=== PATIENT | male | born 1960 | race Caucasian/White ===

== ENCOUNTER 2020-02-02 08:55 | Day surgery (SDC) | payer OTHER ==
[~2020-02-02] VITALS: Ht 177.8 cm; Wt 80.0 kg
[2020-02-02] MEDS ORDERED: OXYCODON-ACETA1 EAC2 PO (12:24)
[2020-02-02] MEDS ORDERED: ACETAMINOPHEN500 MG PO (12:24)
[2020-02-02] MEDS ORDERED: IBUPROFEN600 MG PO (12:24)
--- NOTE | 2020-02-02 12:32 | NUR ---
02/02/20 1232 Justin Fuller REORIENTED TO TIME AND SITUATION ON ENTRY TO PACU. DENIES NAUSEA OR PAIN. MD AT BEDSIDE REVIEWING PROCEDURE WITH PT.
--- NOTE | 2020-02-02 12:54 | NUR ---
BEDSIDE REPORT FROM RECOVERY NURSE TYREL PITTMAN. PATIENT AWAKE, RATES PAIN 2/10 ON PAIN SCALE. DRESSING INTACT. SISTER AT BEDSIDE, NO OTHER NEEDS AT THIS TIME. CALL LIGHT WITHIN REACH.
--- NOTE | 2020-02-03 12:15 | OR ---
[facility] [address] [place], [place] [address] Signed DATE OF OPERATION: 02/02/2020 SURGEON: Rosario Jean MD PREOPERATIVE DIAGNOSES: 1. Multiple symptomatic abdominal and torso lipomata. 2. Probable left inguinal lipoma of the cord. POSTOPERATIVE DIAGNOSES: 1. Multiple subcutaneous lipomatous masses, abdominal wall, left and right lateral flank. 2. Inguinal lesion more likely inguinal hernia than lipoma. 3. Deep subfascial large lipoma of left flank. PROCEDURES: 1. Excision of multiple lipomata of abdominal wall and lumbar areas (9). 2. Excision of left flank deep subfascial lipomatosis mass. ANESTHESIA: General LMA; Local 25 mL of 0.25% Marcaine with epinephrine. COMMERCIAL MAINTENANCE TECHNICIAN: Rosario Mccann CRNA. INDICATION: This 59-year-old white man is well known to me from the past. He is now a patient of Dr. Gaviota Westbrook. The patient is bothered by multiple lipomata of his extremities and abdomen and torso for a number of years. He has undergone excision of lipoma in the past. He is here to undergo excision of symptomatic lipomas of his abdominal wall and torso. Plans were made for excision of lipomas of the extremities; however, insurance review did not allow for such excision concurrently unfortunately. Additionally, he appears to have a mobile mass of the left inguinal area suggestive of cord lipoma and exploration for that is undertaken as well. He understands the risks of bleeding, infection, need for additional treatment and other unforeseen complications and wished to proceed. FINDINGS: Most of the lesions were indeed lipomata. The inguinal lesion was more likely an inguinal hernia, which we will address in the future. Most of the lipomas were subcutaneous, but relatively deep, but not as deep as one on the left lateral flank area, which was adherent to the muscle of the left flank. This was a deep subfascial Electronically Signed By: ROSARIO JEAN MD 02/03/20 1215 PATIENT NAME: EMILE BOOTHE OPERATIVE REPORT DATE OF : 60 REPORT #: [id number] PHYSICIAN: ROSARIO JEAN MD PCP: GAVIOTA WESTBROOK MD REPORT IS CONFIDENTIAL AND NOT TO BE RELEASED WITHOUT AUTHORIZATION [facility] [address] [place] [id number] Signed lipoma, it was excised as well. In total, 10 lesions were excised. DESCRIPTION OF PROCEDURE: The patient was brought to the operating room, given a general LMA type anesthetic. Preoperative antibiotic Ancef was given. Sequential compression device stockings were used. The onset of the operation was with him in supine position, the abdominal area was clipped and prepared with chlorhexidine solution and draped sterilely. Beginning in the central portion, the subxiphoid subcostal margin area, a transverse incision was made over the palpable subcutaneous mass. Dissection carried through the dermis sharply and with blunt and hemostat dissection and lipomatous mass was excised. Seven additional lesions were excised in a similar way including 3 in the subcostal area on the left, 3 in the left lower abdomen and 1 in the right perirectal space. A left inguinal lesion was thought likely to be a lipomatous mass of the cord; however, dissection revealed only a minimal lipoma, but more likely an inguinal hernia. I did consider repairing the hernia at the time, but without insurance authorization and uncertain as to the patient's intentions and with known complications somewhat lipomata excision that hernia was not repaired at this time. All wounds were infiltrated with local anesthetic 0.25% Marcaine with epinephrine and closed with interrupted 2-0 Vicryl and Steri-Strips and ultimately small OpSite. The patient was then rotated to the left lateral position with arm, shoulder roll for protection of the axilla and appropriate positioning and pressure point protection of extremities. The right lateral flank area was prepared with a chlorhexidine solution and draped sterilely and two separate incisions in that area were made and lipomatous lesions excised as well. A similar closure technique was used and the patient was then rotated to the right side down again with a careful pressure padding of pressure points. A single dominant and relatively large soft tissue mass of the left flank was similarly excised and dissection carried down to the muscular wall itself and clearly a subfascial lipoma was noted. Electrocautery was used for hemostasis. The wound was similarly closed and Steri-Strips applied as were OpSite dressings. The patient was ultimately returned to the supine position, extubated, and taken to recovery room in good condition. BLOOD LOSS: Minimal. Rosario Jean MD Electronically Signed By: ROSARIO JEAN MD 02/03/20 1215 PATIENT NAME: EMILE BOOTHE OPERATIVE REPORT DATE OF : 60 REPORT #: [id number] PHYSICIAN: ROSARIO JEAN MD PCP: GAVIOTA WESTBROOK MD REPORT IS CONFIDENTIAL AND NOT TO BE RELEASED WITHOUT AUTHORIZATION [place] [address] Signed /MODL /[id number] cc: Gaviota Westbrook MD Copies: ~ Electronically Signed By: ROSARIO JEAN MD 02/03/20 1215 PATIENT NAME: EMILE BOOTHE OPERATIVE REPORT DATE OF : 60 REPORT #: [id number] PHYSICIAN: ROSARIO JEAN MD PCP: GAVIOTA WESTBROOK MD REPORT IS CONFIDENTIAL AND NOT TO BE RELEASED WITHOUT AUTHORIZATION
--- NOTE | 2020-02-06 11:19 | PATH ---
[facility] [address] [facility] [place], [place] [address] Signed SPECIMEN(S): A LIPOMA 1 SPECIMEN(S): B LIPOMA 2 SPECIMEN(S): C LIPOMA 3 SPECIMEN(S): D LIPOMA 4 SPECIMEN(S): E LIPOMA 5 SPECIMEN(S): F LIPOMA 6 SPECIMEN(S): G LIPOMA 7 SPECIMEN(S): H LIPOMA 8 SPECIMEN(S): I LIPOMA 9 SPECIMEN(S): J LIPOMA 10 SPECIMEN SOURCE: A. LIPOMA 1 B. LIPOMA 2 C. LIPOMA 3 D. LIPOMA 4 E. LIPOMA 5 F. LIPOMA 6 G. LIPOMA 7 H. LIPOMA 8 I. LIPOMA 9 J. LIPOMA 10 CLINICAL HISTORY: Lipomas. J #10 Left flank lipoma subfascial. Excision of multiple soft tissue masses. FINAL PATHOLOGIC DIAGNOSIS: A. "Lipoma #1", superior left upper quadrant abdomen, excision: - Angiolipoma. B. "Lipoma #2", inferior left upper quadrant abdomen, excision: - Angiolipoma. C. "Lipoma #3", inferior left upper quadrant abdomen, excision: - Angiolipoma. D. "Lipoma #4", superior left lower quadrant abdomen, excision: - Fragments of angiolipoma(s). E. "Lipoma #5", superior lateral left lower quadrant abdomen, excision: - Angiolipoma. F. "Lipoma #6", middle left lower quadrant abdomen, excision: - Angiolipoma. G. "Lipoma #7", medial right lower quadrant abdomen, excision: PATIENT NAME: EMILE BOOTHE PATHOLOGY DATE OF : 60 REPORT #: [id number] PHYSICIAN: KERON TENA PCP: CELSA BA MD REPORT IS CONFIDENTIAL AND NOT TO BE RELEASED WITHOUT AUTHORIZATION [facility] [address] [place], [place] [address] Signed - Angiolipoma. H. "Lipoma #8", right flank, excision: - Angiolipoma. I. "Lipoma #9", right anterior flank, excision: - Lobules of mature fibroadipose tissue, consistent with lipoma. J. "Lipoma #10", left flank subfascial , excision: - Angiolipoma. NAL:cml:C2NR MICROSCOPIC EXAMINATION: Histologic sections of all submitted blocks are examined by light microscopy. These findings, together with the gross examination, support the pathologic diagnosis. GROSS DESCRIPTION: Ten specimens are received in ten containers, labeled "DB." A. The specimen, labeled "DB, A," and designated on the requisition "lipoma #1," is received in formalin and consists of a circumscribed fatty tissue nodule, measuring 3.0 x 1.7 x 1.0 cm. The specimen is serially sectioned revealing a yellow homogenous cut surface. Dialysis Nurse sections are submitted in cassette (A1). B. The specimen, labeled "DB, B," and designated on the requisition "lipoma #2," is received in formalin and consists of a circumscribed fatty tissue nodule, measuring 4.5 x 3.6 x 1.4 cm. The specimen is serially sectioned revealing a yellow homogenous cut surface. Dialysis Nurse sections are submitted in cassette (B1). C. The specimen, labeled "DB, C," and designated on the requisition "lipoma #3," is received in formalin and consists of a circumscribed fatty tissue nodule, measuring 2.6 x 1.6 x 0.9 cm. The specimen is serially sectioned revealing a yellow homogenous cut surface. Dialysis Nurse sections are submitted in cassette (C1). D. The specimen, labeled "DB, D," and designated on the requisition "lipoma #4," is received in formalin and consists of two circumscribed fatty tissue nodules, ranging from 1.7-2.5 cm in greatest dimension. The specimens are serially sectioned revealing a yellow homogenous cut surface. Dialysis Nurse sections from each are submitted in cassette (D1). E. The specimen, labeled "DB, E," and designated on the requisition "lipoma #5," is received in formalin and consists of a circumscribed fatty tissue nodule, measuring 3.2 x 2.2 x 1.5 cm. The specimen is serially sectioned revealing a yellow homogenous cut surface. Dialysis Nurse sections are submitted in cassette (E1). PATIENT NAME: EMILE BOOTHE PATHOLOGY DATE OF : 60 REPORT #: [id number] PHYSICIAN: KERON PATHOLOGY PCP: CELSA BA MD REPORT IS CONFIDENTIAL AND NOT TO BE RELEASED WITHOUT AUTHORIZATION [facility] [address] [place], [place] [address] Signed F. The specimen, labeled "DB, F," and designated on the requisition "lipoma #6," is received in formalin and consists of a circumscribed fatty tissue nodule, measuring 1.7 x 1.5 x 1.5 cm. The specimen is serially sectioned and entirely submitted in cassette (F1). G. The specimen, labeled "DB, G," and designated on the requisition "lipoma #7," is received in formalin and consists of a circumscribed fatty tissue nodule, measuring 4.0 x 3.5 x 2.0 cm. The specimen is serially sectioned revealing a yellow homogenous cut surface. Dialysis Nurse sections are submitted in cassette (G1). H. The specimen, labeled "DB, H," and designated on the requisition "lipoma #8," is received in formalin and consists of a circumscribed fatty tissue nodule measuring 4.4 x 3.2 x 2.1 cm. The specimen is serially sectioned revealing a yellow cut surface with minimal fibrous tissue. Dialysis Nurse sections are submitted in cassette (H1). I. The specimen, labeled "DB, I," and designated on the requisition "lipoma #9," is received in formalin and consists of a circumscribed fatty tissue nodule, measuring 2.3 x 1.8 x 1.3 cm. The specimen is serially sectioned revealing fatty and fibrous cut surfaces. Dialysis Nurse sections are submitted in cassette (I1). J. The specimen, labeled "DB, J," and designated on the requisition "lipoma #10," is received in formalin and consists of a circumscribed fatty tissue nodule, measuring 5.0 x 3.2 x 2.5 cm. The specimen is serially sectioned revealing yellow homogenous cut surface. Dialysis Nurse sections are submitted in cassette (J1). AT (under the direct supervision of a pathologist) The Gross Description was prepared using a voice recognition system. The report was reviewed for accuracy; however, sound-alike word errors, addition and/or deletions may occur. If there is any question about this report, please contact Client Services. PERFORMING LABORATORY: The technical component was performed by [facility] [address] (Dye Tub Operator: Susan Dudley MD; CLIA# [id number]). [facility] [address] [place] [id number] (CLIA# [id number]). Diagnostician: Alejandrina Maguire MD Pathologist Electronically Signed 02/06/2020 PATIENT NAME: EMILE BOOTHE PATHOLOGY DATE OF : 60 REPORT #: [id number] PHYSICIAN: KERON PATHOLOGY PCP: CELSA BA MD REPORT IS CONFIDENTIAL AND NOT TO BE RELEASED WITHOUT AUTHORIZATION [address] [address] Signed Copies: ~ PATIENT NAME: EMILE BOOTHE PATHOLOGY DATE OF : 60 REPORT #: [id number] PHYSICIAN: KERON PATHOLOGY PCP: CELSA BA MD REPORT IS CONFIDENTIAL AND NOT TO BE RELEASED WITHOUT AUTHORIZATION
== END 2020-02-02 14:00 | disposition home or self-care (01) ==
LOC: DS 08:55
PROVIDERS: ATTEND Surgery
PROC: 0JB70ZZ Excision of Back Subcutaneous Tissue and Fascia, Open Approach (ICD-10-PCS; 2020-02-02)
PROC: 0JB80ZZ Excision of Abdomen Subcutaneous Tissue and Fascia, Open Approach (ICD-10-PCS; principal; 2020-02-02 09:30)
DX: D17.1 Benign lipomatous neoplasm of skin and subcutaneous tissue of trunk (principal)
CPT/HCPCS: 00400; J0330; J0690; J1100; J1885; J2250; J2405; J2704; J2765; J3010; J7121

== ENCOUNTER 2021-10-08 07:57 | Day surgery (SDC) | payer OTHER ==
[~2021-10-08] VITALS: Ht 177.8 cm; Wt 84.1 kg
[~2021-10-08 07:57] MED LIST: ACETAMINOPHEN500 MG PO; IBUPROFEN600 MG PO; MULTI-VITAMIN1 EACH PO; OXYCODON-ACETA1 EAC2 PO
--- NOTE | 2021-10-08 13:01 | NUR ---
10/08/21 1301 Nury Matta 1246 PATIENT INTO PACU. REPORT RECIEVED FROM SAMY GATES. PATIENT IS ON 6 LITERS VIA MASK. OPA FOR AIRWAY SUPPORT IN PLACE. BREATHING EQUAL AND UNLABORED. OXYGEN SATURATIONS ABOVE 95%. PATIENT IS NON AROUSABLE. SR ON TELE. IVF INFUSING. 1255 PATIENT IS NONAROUSABLE. PATIENT WAS MOVING ARMS BUT NOT RESPONDING. OXYGEN AT 6 LITERS VIA MASK. BREATHING EQUAL AND UNLABORED. 1257 PATIENT AROUSING. OPA REMOVED. OXYGEN AT 6 LITERS VIA MASK. BREATHING AND UNLABORED. PATIENT DENIES ANY PAIN OR NAUSEA. 1300 PATIENT TALKING TO THIS RN. OXYGEN TITRATED DOWN TO ROOM AIR. OXYGEN SATURATIONS ARE ABOVE 95%. BREATHING EQUAL AND UNLABORED. PATIENT DENIES ANY PAIN OR NAUSEA. PATIENT ENCOURAGED TO DEEP BREATH.
[2021-10-08] MEDS ORDERED: OXYCODON-ACETA1 EAC2 PO (13:10)
[2021-10-08] MEDS ORDERED: IBUPROFEN600 MG PO (13:10)
[2021-10-08] MEDS ORDERED: ACETAMINOPHEN500 MG PO (13:10)
--- NOTE | 2021-10-08 13:34 | NUR ---
1325: PT RETURNS TO UNIT FROM PACU ON STRETCHER. AWAKE AND ORIENTED ON ARRIVAL. DENIES PAIN AND NAUSEA. VSS, RESP EVEN AND UNLABORED. UPPER BODY SURGICAL SITES WITH MOD AMOUNT OF RED DRAINAGE UNDER OPSITE. LOWER BODY SURGICAL SITES C/D/I. ICE WATER PROVIDED AND QUESTIONS ANSWERED. POC DISCUSSED AND PT AGREEABLE. NO NEEDS VOICED, CALL LIGHT WITHIN REACH
--- NOTE | 2021-10-08 14:34 | NUR ---
1425: PT AWAKE AND ALERT IN STRETCHER WATCHING TV. VSS, RESP EVEN AND UNLABORED. DENIES PAIN AND NAUSEA AT THIS TIME. NO CHANGE TO SURGICAL SITES FROM ARRIVAL. MADDIE PO INTAKE WELL. DENIES NEED TO VOID AT THIS TIME, TO TRY IN 30 MINUTES. COMFORTABLE WITHOUT NEEDS AT THIS TIME. CALL LIGHT WITHIN REACH
--- NOTE | 2021-10-08 15:05 | NUR ---
1500: PT CONTS TO DENY PAIN AND NAUSEA. DANGLES AT THE BEDSIDE, MADDIE WELL. AMBULATES TO BR WITH STANDBY FROM THIS RN. STEADY GAIT. SUCCESSFUL FIRST POSTOP VOID, 300MLS. BACK TO ROOM 6 AND DRESSES FOR DC INDEPENDENTLY. 1510: SL REMOVED WITH CATH TIP INTACT AND PRESSURE APPLIED TO SITE, WNL. DC INSTRUCTIONS PROVIDED AND DISCUSSED ORDERED. PT VOICES UNDERSTANDING AND DENIES QUESTIONS AND CONCERNS AT THIS TIME. WHEELED OFF OF UNIT IN BY THIS RN. TRANSFERS INTO VEHICLE INDEPENDENTLY AND APPROPRIATELY. NO PHYSICAL S/S OF DISTRESS AT THIS TIME
--- NOTE | 2021-10-11 08:25 | PATH ---
[facility] [address] [place], [place] [address] Signed SPECIMEN(S): A RIGHT LEG SPECIMEN(S): B RIGHT ABDOMINAL WALL SPECIMEN(S): C RIGHT UPPER ARM SPECIMEN(S): D LEFT LEG SPECIMEN(S): E LEFT CHEST SPECIMEN(S): F LEFT UPPER ARM SPECIMEN SOURCE: A. RIGHT LEG B. RIGHT ABDOMINAL WALL C. RIGHT UPPER ARM D. LEFT LEG E. LEFT CHEST F. LEFT UPPER ARM CLINICAL HISTORY: Multiple lipomas. FINAL PATHOLOGIC DIAGNOSIS: A. Right leg: - Lipoma. B. Right abdominal wall: - Lipoma. C. Right upper arm: - Angiolipoma. D. Left leg: - Lipoma. E. Left chest: - Lipoma. F. Left upper arm: - Angiolipoma. TWK:emh:C2NR MICROSCOPIC EXAMINATION: Histologic sections of all submitted blocks are examined by light microscopy. These findings, together with the gross examination, support the pathologic diagnosis. A. The specimen consists of benign adipose tissue consistent with a lipoma. Atypical features are not seen. B. The specimen consists of benign adipose tissue consistent with a lipoma. Atypical features are not seen. PATIENT NAME: EMILE BOOTHE PATHOLOGY DATE OF : 60 REPORT #: [id number] PHYSICIAN: KERON PATHOLOGY PCP: CELSA BA MD REPORT IS CONFIDENTIAL AND NOT TO BE RELEASED WITHOUT AUTHORIZATION [facility] [address] [facility] [place], [place] [address] Signed C. The lesion consists of a benign lipoma with a characteristic integrated pattern of vascular proliferation and adipose tissue. Atypical features are not seen, and there is no evidence of malignancy. D. The specimen consists of benign adipose tissue consistent with a lipoma. Atypical features are not seen. E. The specimen consists of benign adipose tissue consistent with a lipoma. Atypical features are not seen. F. The lesion consists of a benign lipoma with a characteristic integrated pattern of vascular proliferation and adipose tissue. Atypical features are not seen, and there is no evidence of malignancy. [facility] GROSS DESCRIPTION: Six specimens are received in six containers, labeled "DB." A. The specimen, labeled "DB, A," and designated on the requisition "right leg lipomas 9," is received in formalin and consists of multiple, fragmented, markedly ragged, yellow, partially thinly encapsulated fibrofatty tissue pieces from 0.4 up to 4.3 cm in greatest dimension and 12.3 grams. The specimen is inked blue and cross-sectioned to reveal yellow, homogenous, grossly unremarkable tissue. Salesperson [employer] sections are submitted in one cassette (A1). B. The specimen, labeled "DB, B," and designated on the requisition "right abdominal wall 2 lipomas," is received in formalin and consists of two ragged, unoriented, undesignated, partially thinly encapsulated, yellow, rubbery tissue pieces. The first is 3.2 x 1.2 x 0.7 cm, 1.2 grams, inked blue, and cross-sectioned to reveal yellow, homogenous, grossly remarkable tissue. The second is 2.2 x 2.0 x 1.1 cm, 2.5 grams, inked orange, and cross-sectioned to reveal yellow, homogenous tissue with rare focal areas of og-white fibrous septae. A discrete mass/lesion is not grossly identified. Salesperson [employer] sections, including the orange ink piece entirely, are submitted in 3 cassettes (B1-B3). C. The specimen, labeled "DB, C," and designated on the requisition "right upper arm lipoma," is received in formalin and consists of 7.9 grams, five, thinly encapsulated, slightly ragged, yellow, lobulated, rubbery, irregularly-shaped tissue pieces from 1.5 up to 3.7 cm in greatest dimension. The smallest is inked red, the second smallest is inked yellow, the third smallest is inked orange, PATIENT NAME: EMILE BOOTHE PATHOLOGY DATE OF : 60 REPORT #: [id number] PHYSICIAN: KERON TENA PCP: CELSA BA MD REPORT IS CONFIDENTIAL AND NOT TO BE RELEASED WITHOUT AUTHORIZATION [address] [address] Signed the second largest is inked blue, and the largest is inked green. The tissue pieces are cross-sectioned to reveal yellow, homogenous, grossly no tissue without a discrete mass/lesion. Salesperson [employer] sections, including the red ink piece entirely, are submitted in 2 cassettes (C1-C2). D. The specimen, labeled "DB, D," and designated on the requisition "left leg lipomas 9," is received in formalin and consists of 25.6 grams, multiple, yellow, lobulated, ragged, fragmented, yellow, rubbery tissue pieces from 1.0 to 3.7 cm in greatest dimension. The external surface is inked blue and the specimen is cross-sectioned to reveal og, homogenous, grossly unremarkable tissue. Salesperson [employer] sections are submitted in 3 cassettes (D1-D3). E. The specimen, labeled "DB, E," and designated on the requisition "left chest wall lipoma 2," is received in formalin and consists of three pieces of ragged, yellow, fibrofatty tissue from 1.2 to 3.2 cm in greatest dimension and 6.4 grams. The largest of the pieces is inked blue, the second largest of the pieces is inked orange, and the smallest piece is inked green. The three pieces are cross-sectioned to reveal yellow, homogenous, grossly unremarkable tissue. The blue piece has rare focal areas of fibrous septae. An additional discrete mass/lesions are grossly identified. Salesperson [employer] sections are submitted as follows: E1 sales representative education courses of orange and green pieces E2-E4 blue piece entirely F. The specimen, labeled "DB, F," and designated on the requisition "left upper arm lipomas 2," is received in formalin and consists of two thinly encapsulated, yellow, rubbery, 5.2 grams, undesignated, and oriented tissue pieces. The first is 1.7 x 1.3 x 0.3 cm, and inked orange. The second is discoid, 3.6 x 2.8 x 0.7 cm and inked blue. The tissue pieces are cross-sectioned to reveal yellow, homogenous, grossly unremarkable tissue. Salesperson [employer] sections are submitted in one cassette (F1). AI (under the direct supervision of a pathologist) The Gross Description was prepared using a voice recognition system. The report was reviewed for accuracy; however, sound-alike word errors, addition and/or deletions may occur. If there is any question about this report, please contact Client Services. PERFORMING LABORATORY: PATIENT NAME: EMILE BOOTHE PATHOLOGY DATE OF : 60 REPORT #: [id number] PHYSICIAN: KERON TENA PCP: CELSA BA MD REPORT IS CONFIDENTIAL AND NOT TO BE RELEASED WITHOUT AUTHORIZATION [facility] [address] [place] [id number] Signed The technical component was performed by [employer], [address] [place] [address] (CLIA# [id number]). The professional interpretation was performed by [employer] [facility], [facility], [address] [place] [id number] (CLIA#: [id number]). Diagnostician: Aron Rm MD Pathologist Electronically Signed 10/11/2021 Copies: ~ PATIENT NAME: EMILE BOOTHE PATHOLOGY DATE OF : 60 REPORT #: [id number] PHYSICIAN: KERON TENA PCP: CELSA BA MD REPORT IS CONFIDENTIAL AND NOT TO BE RELEASED WITHOUT AUTHORIZATION
--- NOTE | 2021-10-11 14:40 | OR ---
[facility] [address] [place], [place] [address] Signed DATE OF OPERATION: 10/08/2021 SURGEON: Rosario Jean MD PREOPERATIVE DIAGNOSIS: Multiple lipomas including right arm, left arm, right abdomen, left chest, right upper leg and left upper leg. POSTOPERATIVE DIAGNOSIS: Excision of subcutaneous masses x29. PROCEDURE: 1. Excision of soft tissue masses including right upper leg x9, right abdominal wall x2. 2. Left leg x9, left chest wall x2. 3. Right upper arm x5 and left upper arm x2. 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 He has increasing symptoms and growth of lipoma on his upper extremities, abdomen and chest and lower extremities, and the thigh area. He is here to undergo excision. Quite obviously for these to be undertaken under local in the office would cause a fair amount of systemic toxicity to the local anesthesia and on that basis, general anesthesia is planned. The risks of bleeding, infection, cosmetic deformity, and so forth were reviewed with him. He understands and wished to proceed. Findings all the lesions were subcutaneous, none were below the fascia. All of them were lipomatous and multi lobulated. They range in size from 3 cm to 1.5 cm throughout. Extreme number were excised 29 in total. DESCRIPTION OF PROCEDURE: The patient was brought to the operating room, given a general endotracheal anesthetic. Preoperative antibiotic Ancef was given. The abdomen, chest, and legs down to the knees were prepared with a chlorhexidine solution and draped sterilely. The arms were considered separately and later. Work began initially on the right upper leg. The patient had marked the lipomas of concern to him preoperatively and they were well marked by the patient quite clearly. Incision includes of atypical lipomatous type lesion was undertaken in the lower thigh dissecting through the dermis with sharp dissection. Using hemostats, the lipomatous mass was extricated from the subcutaneous Electronically Signed By: ROSARIO JEAN MD 10/11/21 1440 PATIENT NAME: EMILE BOOTHE OPERATIVE REPORT DATE OF : 60 REPORT #: [id number] PHYSICIAN: ROSARIO JEAN MD PCP: GAVIOTA WESTBROOK MD REPORT IS CONFIDENTIAL AND NOT TO BE RELEASED WITHOUT AUTHORIZATION [facility] [address] [place] [id number] Signed space and electrocautery used for hemostasis. Nine such excisions were undertaken on the right upper leg. All of them were closed with interrupted 3-0 Vicryl. Two lesions were noted in the right abdominal wall and they were similarly excised and closed and Steri-Strips applied. All the wounds and dressings applied later. Attention was turned towards the left leg. On the left leg, nine such lesions were similarly excised and similarly closed. Two in the low chest wall on the left side that were excised. Once these were all excised and Steri-Strips applied, small Opsites were applied to the chest and abdominal wall sites and the legs were wrapped with Kerlix gauze and subsequently Jose Miguel wraps. Plans were then made for upper extremity excisions. The right upper arm had lipomatous lesions on the posterior aspect of the upper arm and pillow was draped over the chest and the arm secured. The posterior aspect of the arm was prepared with chlorhexidine solution and draped sterilely. A similar technique as before. Five such lesions were excised completely. They were closed with interrupted 3-0 Vicryl, Steri-Strips, and Opsites. A separate but similar draping of the left arm was undertaken and 2 sachs lesions were excised. In aggregate, there were a total of 29 lipomatous lesions excised entirely. The operation was prolonged, complicated, and difficult on the basis of the extent of disease. All lesions marked as concerning to the patient had been removed. MD SHAVON Barbosa/VICKEYL /[id number] cc: Gaviota Westbrook Copies: ~ Electronically Signed By: ROSARIO JEAN MD 10/11/21 1440 PATIENT NAME: EMILE BOOTHE OPERATIVE REPORT DATE OF : 60 REPORT #: [id number] PHYSICIAN: ROSARIO JEAN MD PCP: GAVIOTA WESTBROOK MD REPORT IS CONFIDENTIAL AND NOT TO BE RELEASED WITHOUT AUTHORIZATION
== END 2021-10-08 15:10 | disposition home or self-care (01) ==
LOC: DS 07:57
PROVIDERS: ATTEND Surgery
PROC: 0JBL0ZZ Excision of Right Upper Leg Subcutaneous Tissue and Fascia, Open Approach (ICD-10-PCS; 2021-10-08)
PROC: 0JBF0ZZ Excision of Left Upper Arm Subcutaneous Tissue and Fascia, Open Approach (ICD-10-PCS; 2021-10-08)
PROC: 0JBD0ZZ Excision of Right Upper Arm Subcutaneous Tissue and Fascia, Open Approach (ICD-10-PCS; 2021-10-08)
PROC: 0JB60ZZ Excision of Chest Subcutaneous Tissue and Fascia, Open Approach (ICD-10-PCS; 2021-10-08)
PROC: 0JB80ZZ Excision of Abdomen Subcutaneous Tissue and Fascia, Open Approach (ICD-10-PCS; 2021-10-08)
PROC: 0JBM0ZZ Excision of Left Upper Leg Subcutaneous Tissue and Fascia, Open Approach (ICD-10-PCS; principal; 2021-10-08 09:15)
DX: D17.1 Benign lipomatous neoplasm of skin and subcutaneous tissue of trunk (principal); D17.21 Benign lipomatous neoplasm of skin and subcutaneous tissue of right arm; D17.23 Benign lipomatous neoplasm of skin and subcutaneous tissue of right leg; D17.24 Benign lipomatous neoplasm of skin and subcutaneous tissue of left leg
CPT/HCPCS: 00400; J0690; J1100; J1644; J1885; J2001; J2405; J3010; J7121